=== PATIENT | female | born 1985 | race Caucasian/White ===

== ENCOUNTER 2024-11-01 11:02 | Outpatient (CLI) | payer OTHER, SELFPAY ==
--- OUTSIDE RECORDS SUMMARY | 2024-11-01 12:38 | XMS_ITS | Encounter Summary ---
Author Organization [facility] Address [address] [place] [address] Care Team Providers Care Credit Control Officer Name Role Phone Padmini Curry HIGHWAY TRUCK DRIVER Primary Care Provider Tavon Mehta DO Primary Care Provider [phone] TRUCK DRIVER Primary Care Provider Tavon Mehta DO Primary Care Provider [phone] Reason for Visit * Reason Onset Date Comments Letter 12/05/2022 Encounter Details Date Type Department Care Team (Late st Contact Info) Description 12/05/2022 MyChart Message Enc [facility] Medical Group Family Medicine - [place] [address] [place] [address] Tavon Alvarado DO [address] [place] [address] Itch cream Social History Tobacco Use Types Packs/Day Years Used Date Smoking Tobacco: Former Cigarettes 0.3 1 0 07/06/2018 - 07/06/2019 Smokeless Tobacco: Never Alcohol Use Standard Drinks/Week Comments Not Currently 0 (1 standard drink = 0.6 oz pur e alcohol) PHQ-2 Answer Date Recorded Patient Health Questionnaire-2 Score 0 07/03/2022 Comments No Sex and Gender Information Value Date Recorded Sex Assigned at Not on file Legal Sex Female 4:03 PM CDT Gender Identity Female 11/27/2021 5:01 AM CDT Sexual Orientation Not on file COVID-19 Exposure Response Date Recorded In the last 10 days, have yo u been in contact with someone who was confirmed or suspected to have Coronavirus/COVID-19? No / Unsure 12/04/2022 10:27 AM CDT documented as of this encounter Progress Notes * Padmini Curry NP - 12/09/2022 2:05 PM CDT Patient requesting extended time off. I am not sure if you feel that this is needed since I did notsee her. * Luís Dubon MA - 12/09/2022 10:52 AM CDT FYI * Marybeth Benedict - 12/08/2022 1:21 PM CDT Pt called and is wanting to know about being office work until Thursday12/15/22 due to her hives. Herlegs are getting better but still has them on her buttocks and butt crack. Pt will need a note extended until Thursday instead of tomorrow Call pt back today * Reena Boss - 12/08/2022 8:30 AM CDT Patient is calling to verify the status of her off work letter. Please follow up with patient/ documented in this encounter Plan of Treatment Not on file documented as of this encounter Visit Diagnoses Not on filedocumented in this encounter Additional Health Concerns Assessment Noted Time PHQ-9 Depression Total Score: 0 08/23/19 20 10:04 AM BLOCK HAND documented as of this encounter Care Teams Credit Control Officer Relationship Specialty Start Date End Date Padmini Curry NP PCP - General NURSE PRACTITIONER 08/23/19 01/28/23 Tav[place]varado [place] [address] PCP - General FAMILY PRACTICE 01/29/23 03/22/23 Padmini Curry NP PCP - General NURSE PRACTITIONER 03/23/23 04/01/23 Tavon Alvarado DO [address] [place], [place] [id number] PCP - General FAMILY PRACTICE 04/02/23 documented as of this encounter
--- OUTSIDE RECORDS SUMMARY | 2024-11-01 12:38 | XMS_ITS | Clinical Summary ---
Author Organization [facility] Address [facility] [place] [address] Care Team Providers Care Bus Driver Supervisor Name Role Phone Christiano, Tavon Jose De Jesus Primary Care Provider [phone] Allergies No known active allergies Medications No known medications Active Problems Problem Noted Date Diagnosed Date Class 2 obesity due to exces s calories without serious comorbidity with body mass index (BMI) of 37.0 to 37.9 in adult 04/02/2023 Dizziness 04/02/2023 Transient neurological symptoms 04/02/2023 Resolved Problems Problem Noted Date Diagnosed Date Resolved Date Bilateral tinnitus 07/03/2022 Hearing loss 07/03/2022 04/02/2023 Acute cystitis without hematuria 07/10/2021 04/02/2023 Overview (07/03/2022): Last Assessment & Plan: Will culture urine Advised increased fluids, rest Note printed for work Advised cranberry juice 4-6oz/day Advised f/u in next week if not improving, sooner if worsening Patient reminded that with this antibiotic that leg pain and inflammation may occur. They were reminded that in the event of these symptoms to stop taking the antibiotic and contact the office. Obesity (BMI 30.0-34.9) 07/21/201703/07 Family History Medical History Relation Comments Heart Disease Father None Mother Relation Status Comments Father Alive Mother Alive Social History Tobacco Use Types Packs/Day Years Used Date Smoking Tobacco: Former Cigarettes 0.3 1 0 07/06/2018 - 07/06/2019 Smokeless Tobacco: Never Tobacco Cessation:Counseling Given: No Alcohol Use Standard Drinks/Week Comments Not Currently 0 (1 standard drink = 0.6 oz pur e alcohol) PHQ-2 Answer Date Recorded Patient Health Questionnaire-2 Score 2 04/02/2023 Comments No Sex and Gender Information Value Date Recorded Sex Assigned at Not on file Legal Sex Female 4:03 PM CDT Gender Identity Female 11/27/2021 5:01 AM CDT Sexual Orientation Not on file Last Filed Vital Signs Vital Sign Reading Time Taken Comments Blood Pressure 110/74 04/02/2023 7:43 AM CDT Pulse 80 04/02/2023 7:43 AM CDT Temperature 36.7 C (98.1 F) 04/02/2023 7:43 AM CDT Respiratory Rate 16 11/12/2022 9:00 PM CDT Oxygen Saturation 98% 04/02/2023 7:43 AM CDT Inhaled Oxygen Concentration - - Weight 94 kg (207 lb 4.8 oz) 04/02/2023 7:43 AM CDT Height 157.5 cm (5' 2 ) 02/24/2023 9:39 AM CDT Body Mass Index 37.92 02/24/2023 9:39 AM CDT Plan of Treatment Health Maintenance Due Date Last Done Comments Annual Physical 1989 Hepatitis C 2004 DTaP, Tdap and Td Vaccines ( 1 - Tdap) 2005 Hepatitis B Vaccines (1 of 3 - 19+ 3-dose series) 2005 COVID-19 Vaccine ( - 2023-2 5 season) 2024 PHQ-2 (Physician [place]) 07/06/2024 04/02/2023 Cervical Cancer Screening Pa p Smear (Age 30 to 64) Every 3 Years 04/10/2026 04/10/2023, 04/02/2023 Cervical Cancer Screening Pa p with HPV Testing (Age 30 to 64) Every 5 Years 04/10/2028 04/10/2023, 12/20/2020 Cervical Cancer Screening wi th HPV 04/10/2028 HPV Vaccines Aged Out No longer eligi ble based on patient's age to complete this topic Meningococcal B Vaccine Aged Out No l onger eligible based on patient's age to complete this topic Meningococcal Vaccine Aged Out No beckie lissette eligible based on patient's age to complete this topic Pneumococcal Vaccine: Pediatrics (0 to 5 Years) and At-Risk Patients (6 to 49 Years) Aged Out No longer eligible b ased on patient's age to complete this topic RSV Immunizations Under 20 Months Aged Out No longer eligible b ased on patient's age to complete this topic Procedures Procedure Name Priority Date/Time Associated Diagnosis Comments HUMAN PAPILLOMAVIRUS, HIGH-RISK TYPES Routine 04/10/2023 12:00 PM CDT CYTOPATH CERV/VAG THIN LAYER Routine 04/10/2023 4:07 AM CDT from Last 3 Months or Most Recently Relevant to Health Maintenance Results * HUMAN PAPILLOMAVIRUS, HIGH-RISK TYPES (04/10/2023 12:00 PM CDT) SPEC DESCRIPTION CERVICAL/END OCERVICAL 04/13/2023 6:00 AM CDT [facility] HPV DNA HIGH RISK NEGATIVE NEGATIVE 04/13/2023 3:26 PM CDT [facility] Comment:SEE CYTOLOGY REPORT 04/10/2023 12:0 0 PM CDT us Chelsy Hubbard MD PATHOLOGY/CYTOLOGY ORDER ZHANE Final Result [facility] [address] [place] [address], * Cytopath Cerv/Vag Thin Layer (04/10/2023 4:07 AM CDT) THIN PREP PAP [facility] [address] [place] [address] Department of Pathology Pathology Report CERVICAL/VAGINAL PAP SMEAR REPORT Name: BARBARA SYED Age: 3 1985 (Age: 37) Location: [facility] Sex: F Collected Date: 04/10/2023 [facility] #: [id number] Date Received: 04/13/2023 Date Reported: 04/17/2023 Provider: CHELSY HUBBARD MD INTERPRETATION CERVICAL/ENDOCERVI MOISÉS: SATISFACTORY FOR EVALUATION. ENDOCERVICAL/TRANS FORMATION ZONE COMPONENT PRESENT. NEGATIVE FOR INTRAEPITHELIAL LESION OR MALIGNANCY. REACTIVE CHANGES PRESENT. NEGATIVE FOR HIGH RISK HPV. The FDA approved Aptima HPV assay is an in vitro nucleic acid amplification test for the qualitative detection of E6/E7 viral messenger RNA (mRNA) from 14 high-risk types of human papillomavirus (HPV) in cervical specimens. The high-risk HPV types detected by the assay include: 16,18,31,33,35,39, 45,51,52,56,58,59, 66, and 68. Electronically Signed Out María Rutherford M.D. DURGA Sutherland (ASCP) CLINICAL HISTORY Z12.4 ThinPrep Pap Test with HR HPV testing requested. SPECIMEN SUBMITTED CERVICAL/ENDOCERVI MOISÉS Specimen Received:1 Thin Prep Vial, Image Assisted Pap (SMD) Please note: The Pap smear is not a diagnostic test. It is a screening test. Negative results on combined screening (Pap test and HPV-DNA) have a high negative predictive value (99.1-100 percent) for cervical cancer. The pap test is not effective in detecting cervical adenocarcinoma. [facility] 04/10/2023 4:07 AM CDT 04/13/2023 4:07 AM CDT Comment:CERVICAL/ENDOCERVICA L us Chelsy Hubbard MD PATHOLOGY/CYTOLOGY ORDER ZHANE Final Result [facility] [address] [place] [address], from Last 3 Months or Most Recently Relevant to Health Maintenance Care Teams Bus Driver Supervisor Relationship Specialty Start Date End Date Tavon Alvarado [place] [place] [address] PCP - General FAMILY PRACTICE 04/02/23
--- OUTSIDE RECORDS SUMMARY | 2024-11-01 12:38 | XMS_ITS | Clinical Summary ---
Author Organization [facility] HealthCare Care Team Providers Care Hair Worker Name Role Phone No, Physician Primary Care Provider [phone] Allergies Active Allergy Reactions Criticality Noted Date Comments Penicillin G Unknown 03/04/2019 Medications miconazole 2 % vaginal creamIndications :Vulvovaginal Candidiasis Insert 1 applicator into the vagina nightly 45 g 1 2 Active Active Problems Problem Noted Date Diagnosed Date Acute cystitis without hematuria 07/10/2021 Assessment & Plan (07/10/2021 10:32 AM HOUSE PARENT): Will culture urine Advised increased fluids, rest Note printed for work Advised cranberry juice 4-6oz/day Advised f/u in next week if not improving, sooner if worsening Patient reminded that with this antibiotic that leg pain and inflammation may occur. They were reminded that in the event of these symptoms to stop taking the antibiotic and contact the office. Obesity (BMI 30.0-34.9) 07/21/2017 Surgical History Surgery Date Site/Laterality Comments CYSTECTOMY Medical History Medical History Date Comments No known problems Family History Medical History Relation Name Comments Breast cancer Neg Hx Social History Tobacco Use Types Packs/Day Years Used Date Smoking Tobacco: Former Cigarettes Smokeless Tobacco: Never Alcohol Use Standard Drinks/Week Comments Yes 0 (1 standard drink = 0.6 oz pur e alcohol) AUDIT-C Answer Date Recorded Frequency of Alcohol Consumption Monthly or less 03/04/2019 Average Number of Drinks 1 or 2 019 Frequency of Binge Drinking Not on file 02/05 Personal Safety Answer Date Recorded Getting School Help Needed Not on file 08/29 Comments No Sex and Gender Information Value Date Recorded Sex Assigned at Not on file Legal Sex Female 3:35 AM HOUSE PARENT Gender Identity Female 06/14/2019 10:34 PM HOUSE PARENT Sexual Orientation Straight 06/14/2019 10 :34 PM HOUSE PARENT Obstetrics History Para Term AB IAB SAB Ectopic Multiple Livin g Live Births 0 0 0 0 0 0 0 0 0 0 0 Last Filed Vital Signs Vital Sign Reading Time Taken Comments Blood Pressure 108/76 07/17/2021 8:49 AM HOUSE PARENT Pulse 87 06/30/2021 12:00 AM HOUSE PARENT Temperature 36.7 C (98.1 F) 06/29/2021 9:33 PM HOUSE PARENT Respiratory Rate 19 06/30/2021 12:00 AM HOUSE PARENT Oxygen Saturation 99% 06/30/2021 12:00 AM HOUSE PARENT Inhaled Oxygen Concentration - - Weight 92.6 kg (204 lb 3.2 oz) 07/17/2021 8:49 A M HOUSE PARENT Height 154.9 cm (5' 1 ) 07/17/2021 8:49 AM HOUSE PARENT Body Mass Index 38.58 07/17/2021 8:49 AM HOUSE PARENT Plan of Treatment Not on file Insurance [facility] HMO/PPO Address: [address] [address] Care Teams Hair Worker Relationship Specialty Start Date End Date No, Physician PCP - General 10/11/18
--- OUTSIDE RECORDS SUMMARY | 2024-11-01 12:38 | XMS_ITS | Encounter Summary ---
Author Organization [facility] Address [address] [place] [address] Care Team Providers Care Lithographic Printing Machinist Name Role Phone Padmini Curry NP Primary Care Provider Tavon Mehta DO Primary Care Provider [phone] Pdamini Curry RN PROCEDURES Primary Care Provider Tavon Mehta DO Primary Care Provider [phone] Encounter Details Date Type Department Care Team (Late st Contact Info) Description 11/10/2022 MyChart Message Enc [facility] Medical Group Family Medicine - [place] [address] [place] [address] Padmini Curry NP Rash Social History Tobacco Use Types Packs/Day Years [...] suspected to have Coronavirus/COVID-19? No / Unsure 11/12/2022 5:32 PM CDT documented as of this encounter Functional Status * Calculated C-SSRS Risk Score (Lifetime/Recent) Answer Date of Assessment Author Status No Risk Indicated 11/12/2022 5:36 PM CDT Harini Vazquez RN Active * Riley Suicide Severity Rating Scale (Screener/Recent Self-Report) Question Answer Date of Assessment Author Status 1. Wish to be (Past 1 Month) No 11/12/2022 5:36 PM CDT Ivon Vazquez RN Acti ve 2. Non-Specific Active Suicidal Thoughts (Past 1 Month) No 11/12/2022 5:36 PM CDT Ivon Vazquez RN Acti ve 6. Suicidal Behavior (Lifetime) No 11/12/2022 5:36 PM CDT Ivon Vazquez RN Acti ve documented as of this encounter Progress Notes * Padmini Curry NP - 11/19/2022 1:41 PM CDT I saw her on 11/10/2022 for this. * Chantell Frias - 11/19/2022 11:46 AM CDT Please see message and pictures. Okay to send out different cream or do you want pt to have a visit? * Chantell Frias - 11/19/2022 11:46 AM CDTFrom: Barbara Ramirez To: Padmini Curry Sent: 11/10/2022 8:45 AM CDT Subject: Rash Hello I was hoping you could call me in some cream for a rash I have on the upper back of each of my thighs right below the butt area. I???ve been using some triamcinolone acetonide cram 0.1% that I had left from previous issue I had like this however this cream is not working. Wasn???t sure if there was a stronger type of itching cream I cou ld use since I have to work and wearing clothes just irritates the area more thank you documented in this encounter Plan of Treatment Not on file documented as of this encounter Visit Diagnoses Not on filedocumented in this encounter Additional Health Concerns Assessment Noted Time PHQ-9 Depression Total Score: 0 08/23/19 20 10:04 AM CUTTER GRINDER OPERATOR documented as of this encounter Care Teams Lithographic Printing Machinist Relationship Specialty Start Date End Date Padmini Curry NP PCP - General NURSE PRACTITIONER 08/23/19 01/28/23 Tavon Alvarado DO [address] [place] [address] PCP - General FAMILY PRACTICE 01/29/23 03/22/23 Padmini Curry NP PCP - General NURSE PRACTITIONER 03/23/23 04/01/23 Tavon Alvarado DO [address] [place] [address] PCP - General FAMILY PRACTICE 04/02/23 documented as of this encounter
--- OUTSIDE RECORDS SUMMARY | 2024-11-01 12:38 | XMS_ITS | Encounter Summary ---
Author Organization [facility] Facility Care Team Providers Care Log Rider Name Role Phone No, Physician Primary Care Provider [phone] Encounter Details Date Type Department Care Team (Latest Contact Info) Description 03/02/2013 Orders Only [facility] CLINCONV Provider, MD Preston [address] [place] [address] Social History Tobacco Use Types Packs/Day Years Used Date Smoking Tobacco: Never Assessed Comments Unknown Sex and Gender Information Value Date Recorded Sex Assigned at Not on file Legal Sex Female 3:35 AM NEWSCAST PRODUCER Gender Identity Female 06/14/2019 10:34 PM NEWSCAST PRODUCER Sexual Orientation Straight 06/14/2019 10 :34 PM NEWSCAST PRODUCER documented as of this encounter Plan of Treatment Not on file documented as of this encounter Procedures Procedure Name Priority Date/Time Associated Diagnosis Comments SCAN - PATHOLOGY 03/02/2013 12:0 0 AM CDT documented in this encounter Results * SCAN - PATHOLOGY (03/02/2013 12:00 AM CDT) Narrative 03/02/2013 12:00 AM CDT Ordered by an unspecified provider. Historical Provider Final Res ult documented in this encounter Visit Diagnoses Not on filedocumented in this encounter Care Teams Log Rider Relationship Specialty Start Date End Date No, Physician PCP - General 10/11/18 documented as of this encounter
--- OUTSIDE RECORDS SUMMARY | 2024-11-01 12:38 | XMS_ITS | Encounter Summary ---
Author Organization [facility] Address [address] [place] [address] Care Team Providers Care Cutter And Edge Trimmer Name Role Phone Padmini Curry SCIENCE TECHNICIANS Primary Care Provider Tavon Mehta DO Primary Care Provider [phone] Padmini Curry SCIENCE TECHNICIANS Primary Care Provider Tavon Mehta DO Primary Care Provider [phone] Encounter Details Date Type Department Care Team (Late st Contact Info) Description 12/03/2021 Aqwise Message Enc [facility] Medical Group Family Medicine - [place] [address] [place] [address] [place], [facility] Provider Lab results Social History Tobacco Use Types Packs/Day Years Used Date Smoking Tobacco: Former Cigarettes 0.3 1 0 07/06/2018 - 07/06/2019 Smokeless Tobacco: Never Alcohol Use Standard Drinks/Week Comments Not Currently 0 (1 standard drink = 0.6 oz pur e alcohol) PHQ-2 Answer Date Recorded PHQ-2 Score 0 08/23/2019 Comments No Sex and Gender Information Value Date Recorded Sex Assigned at Not on file Legal Sex Female 4:03 PM CDT Gender Identity Female 11/27/2021 5:01 AM CDT Sexual Orientation Not on file COVID-19 Exposure Response Date Recorded In the last 10 days, have yo u been in contact with someone who was confirmed or suspected to have Coronavirus/COVID-19? No / Unsure 12/03/2021 7:44 AM CDT documented as of this encounter Plan of Treatment Not on file documented as of this encounter Visit Diagnoses Not on filedocumented in this encounter Additional Health Concerns Assessment Noted Time PHQ-9 Depression Total Score: 0 08/23/19 20 10:04 AM INNOVATIONS PARAPROFESSIONAL documented as of this encounter Care Teams Cutter And Edge Trimmer Relationship Specialty Start Date End Date Padmini Curry NP PCP - General NURSE PRACTITIONER 08/23/19 01/28/23 Tavon Alvarado, [address] [place] [address] PCP - General FAMILY PRACTICE 01/29/23 03/22/23 Padmini Curry NP PCP - General NURSE PRACTITIONER 03/23/23 04/01/23 Tavon Alvarado DO [address] [place] [address] PCP - General FAMILY PRACTICE 04/02/23 documented as of this encounter
--- OUTSIDE RECORDS SUMMARY | 2024-11-01 12:38 | XMS_ITS | Encounter Summary ---
Author Organization [facility] Address [address] [place] [address] Care Team Providers Care Belt Conveyor Drier Name Role Phone Padmini Curry DOOR BUILDER Primary Care Provider Tavon Mehta DO Primary Care Provider [phone] Padmini Curry DOOR BUILDER Primary Care Provider Tavon Mehta DO Primary Care Provider [phone] Encounter Details Date Type Department Care Team (Late st Contact Info) Description 12/12/2021 MyChart Message Enc [facility] Medical Group Family Medicine - [place] [address] [place] [address] Padmini Curry NP Dizzy spells Social History Tobacco Use Types Packs/Day Years [...] as of this encounter Progress Notes * Luís Dubon MA - 12/13/2021 7:10 AM CDT Please advise. documented in this encounter Plan of Treatment Not on file documented as of this encounter Visit Diagnoses Not on filedocumented in this encounter Additional Health Concerns Assessment Noted Time PHQ-9 Depression Total Score: 0 08/23/19 10:04 AM BOBBIN DISKER documented as of this encounter Care Teams Belt Conveyor Drier Relationship Specialty Start Date End Date Padmini Curry NP PCP - General NURSE PRACTITIONER 08/23/19 01/28/23 Tavon Alvarado DO [address] [place], [place] [id number] PCP - General FAMILY PRACTICE 01/29/23 03/22/23 Padmini Curry NP PCP - General NURSE PRACTITIONER 03/23/23 04/01/23 Tavon Alvarado DO [address] [place], [place] [id number] PCP - General FAMILY PRACTICE 04/02/23 documented as of this encounter
--- OUTSIDE RECORDS SUMMARY | 2024-11-01 12:38 | XMS_ITS | Referral Summary ---
Author Organization [facility] HealthCare Care Team Providers Care Raw Shellfish Preparer Name Role Phone No, Physician Primary Care Provider [phone] Allergies Active Allergy Reactions Criticality Noted Date Comments Penicillin G Unknown 03/04/2019 Medications miconazole 2 % vaginal creamIndications :Vulvovaginal Candidiasis Insert 1 applicator into the vagina nightly 45 g 1 2 Active Active Problems Problem Noted Date Diagnosed Date Acute cystitis without hematuria 07/10/2021 Assessment & Plan (07/10/2021 10:32 AM SPA DIRECTOR/FINANCE): Will culture urine Advised increased fluids, rest Note printed for work Advised cranberry juice 4-6oz/day Advised f/u in next week if not improving, sooner if worsening Patient reminded that with this antibiotic that leg pain and inflammation may occur. They were reminded that in the event of these symptoms to stop taking the antibiotic and contact the office. Obesity (BMI 30.0-34.9) 07/21/2017 Social History Tobacco Use Types Packs/Day Years [...] on file Legal Sex Female 3:35 AM SPA DIRECTOR/FINANCE Gender Identity Female 06/14/2019 10:34 PM SPA DIRECTOR/FINANCE Sexual Orientation Straight 06/14/2019 10 :34 PM SPA DIRECTOR/FINANCE Last Filed Vital Signs Vital Sign Reading Time Taken Comments Blood Pressure 108/76 07/17/2021 8:49 AM SPA DIRECTOR/FINANCE Pulse 87 06/30/2021 12:00 AM SPA DIRECTOR/FINANCE Temperature 36.7 C (98.1 F) 06/29/2021 9:33 PM SPA DIRECTOR/FINANCE Respiratory Rate 19 06/30/2021 12:00 AM SPA DIRECTOR/FINANCE Oxygen Saturation 99% 06/30/2021 12:00 AM SPA DIRECTOR/FINANCE Inhaled Oxygen Concentration - - Weight 92.6 kg (204 lb 3.2 oz) 07/17/2021 8:49 A M SPA DIRECTOR/FINANCE Height 154.9 cm (5' 1 ) 07/17/2021 8:49 AM SPA DIRECTOR/FINANCE Body Mass Index 38.58 07/17/2021 8:49 AM SPA DIRECTOR/FINANCE Plan of Treatment Not on file Insurance [facility] H[facility]/PPO Address: [facility] [address] [place] [address] Care Teams Raw Shellfish Preparer Relationship Specialty Start Date End Date No, Physician PCP - General 10/11/18
--- OUTSIDE RECORDS SUMMARY | 2024-11-01 12:38 | XMS_ITS | Encounter Summary ---
Author Organization [facility] Address [address] [place] [address] Care Team Providers Care Manager Mass Name Role Phone Padmini Curry NP Primary Care Provider Tavon Mehta DO Primary Care Provider [phone] Padmini Curry CARBONATION EQUIPMENT OPERATOR Primary Care Provider Tavon Mehta DO Primary Care Provider [phone] Encounter Details Date Type Department Care Team (Late st Contact Info) Description 07/02/2022 MyChart Message Enc [facility] Medical Group Family Medicine - [place] [address] [place] [address] Padmini Curry NP Medication needed Social History Tobacco Use Types Packs/Day Years [...] suspected to have Coronavirus/COVID-19? No / Unsure 07/03/2022 12:15 PM HEAD MEN'S TENNIS COACH documented as of this encounter Functional Status * Over the past 2 weeks, how often have you been bothered by any of the following problems? Question Answer Date of Assessment Author Status Little interest or pleasure in doing things Not at all 07/03/2022 12:22 PM HEAD MEN'S TENNIS COACH Jarod Ledesma MA Acti ve Feeling down, depressed, or hopeless Not at all 07/03/2022 12:22 PM HEAD MEN'S TENNIS COACH Jarod Ledesma MA Active Patient Health Questionnaire-2 Score 0 07/03/2022 12:22 PM HEAD MEN'S TENNIS COACH Jarod Ledesma M A Active documented as of this encounter Progress Notes * Luís Dubon MA - 07/03/2022 8:26 AM CST Pt coming in for appt today. 07/03/22. MEN'S TENNIS COACH * Marybeth Benedict - 07/03/2022 7:34 AM CST Pt called and scheduled an appt today 07/03/22 MEN'S TENNIS COACH * Marybeth Benedict - 07/02/2022 9:13 AM CST Pt called office and stated that she thinks she has a sinus infection. Pt is wanting to know if shecan get a script for this. MEN'S TENNIS COACH documented in this encounter Plan of Treatment Not on file documented as of this encounter Visit Diagnoses Not on filedocumented in this encounter Additional Health Concerns Assessment Noted Time PHQ-9 Depression Total Score: 0 08/23/19 20 10:04 AM HEAD MEN'S TENNIS COACH documented as of this encounter Care Teams Manager Mass Relationship Specialty Start Date End Date Padmini Curry NP PCP - General NURSE PRACTITIONER 08/23/19 01/28/23 Tavon [place] [address] [address] [place] [address] PCP - General FAMILY PRACTICE 01/29/23 03/22/23 Padmini Curry NP PCP - General NURSE PRACTITIONER 03/23/23 04/01/23 Tavon Alvarado DO [address] [place] [address] PCP - General FAMILY PRACTICE 04/02/23 documented as of this encounter
--- OUTSIDE RECORDS SUMMARY | 2024-11-01 12:38 | XMS_ITS | Encounter Summary ---
Author Organization [facility] Address [address] [place] [address] Care Team Providers Care Public Health Worker Name Role Phone Padmini Curry NP Primary Care Provider Tavon Mehta DO Primary Care Provider [phone] Padmini Curry AVIONICS SAFETY INSPECTOR Primary Care Provider Tavon Mehta DO Primary Care Provider [phone] Encounter Details Date Type Department Care Team (Late st Contact Info) Description 12/05/2021 MyChart Message Enc [facility] Medical Group Family Medicine - [place] [address] [place] [address] Padmini Curry NP Note for work Social History Tobacco Use Types Packs/Day Years [...] Progress Notes * Luís Dubon MA - 12/05/2021 10:05 AM CDT Pt notified the letter is signed and ready for crab picker; documented in this encounter Plan of Treatment Not on file documented as of this encounter Visit Diagnoses Not on filedocumented in this encounter Additional Health Concerns Assessment Noted Time PHQ-9 Depression Total Score: 0 08/23/19 10:04 AM NURSING RESIDENT documented as of this encounter Care Teams Public Health Worker Relationship Specialty Start Date End Date Padmini Curry NP PCP - General NURSE PRACTITIONER 08/23/19 01/28/23 Tavon Alvarado DO [address] [place], [place] [id number] PCP - General FAMILY PRACTICE 01/29/23 03/22/23 Padmini Curry NP PCP - General NURSE PRACTITIONER 03/23/23 04/01/23 Tavon Alvarado DO [address] [place], [place] [id number] PCP - General FAMILY PRACTICE 04/02/23 documented as of this encounter
--- OUTSIDE RECORDS SUMMARY | 2024-11-01 12:38 | XMS_ITS | Encounter Summary ---
Author Organization [facility] Address [address] [place] [address] Care Team Providers Care Regional Airline Pilot Name Role Phone Padmini Curry NP Primary Care Provider Tavon Mehta DO Primary Care Provider [phone] Padmini Curry PROCESS SPECIALIST Primary Care Provider Tavon Mehta DO Primary Care Provider [phone] Encounter Details Date Type Department Care Team (Late st Contact Info) Description 11/12/2022 Hoseannat Message Enc [facility] Medical Group Family Medicine - [place] [address] [place] [address] Padmini Curry NP Question Social History Tobacco Use Types Packs/Day Years [...] Status No Risk Indicated 11/12/2022 5:36 PM Harini Meadows RN Active * [place] Suicide Severity Rating Scale (Screener/Recent Self-Report) Question Answer Date of Assessment Author Status 1. Wish to be (Past 1 Month) No 11/12/2022 5:36 PM Ivon Meadows, RN Acti ve 2. Non-Specific Active Suicidal Thoughts (Past 1 Month) No 11/12/2022 5:36 PM Ivon Meadows, RN Acti ve 6. Suicidal Behavior (Lifetime) No 11/12/2022 5:36 PM Ivon Meadows, RN Acti ve documented as of this encounter Plan of Treatment Not on file documented as of this encounter Visit Diagnoses Not on filedocumented in this encounter Additional Health Concerns Assessment Noted Time PHQ-9 Depression Total Score: 0 08/23/19 20 10:04 AM MULTIPLE RESAW OPERATOR documented as of this encounter Care Teams Regional Airline Pilot Relationship Specialty Start Date End Date Padmini Curry NP PCP - General NURSE PRACTITIONER 08/23/19 01/28/23 Tavon Alvarado DO [address] [place], [place] [id number] PCP - General FAMILY PRACTICE 01/29/23 03/22/23 Padmini Curry NP PCP - General NURSE PRACTITIONER 03/23/23 04/01/23 Tavon Alvarado [place] [place] [address] PCP - General FAMILY PRACTICE 04/02/23 documented as of this encounter
== END 2024-11-01 11:03 | disposition home or self-care (01) ==
LOC: ANHSURGERY 11:12
PROVIDERS: PCP Family Medicine; Visit Provider Obstetrics & Gynecology
DX: R10.2 Pelvic and perineal pain (principal)
CPT/HCPCS: 36415; 86850; 86900; 86901

== ENCOUNTER 2024-11-11 00:58 | Day surgery (SDC) | payer OTHER, SELFPAY ==
[2024-11-01 09:21] VITALS: BMI 33.0
--- NOTE | 2024-11-01 09:21 | PC.NURSE ---
Report to the Outpatient Waiting Room, entrance under the green pavilion located off [facility], at time _0815_ on date _[id number]_. Planned Procedure Time: _1015_.? Time changes happen often and if your time is changed the preop area will call you the afternoon before. - You and your visitor will be asked to self-screen and do not enter if you have any COVID symptoms. Please call surgeon if you need to reschedule. - A mask is optional within the hospital at this time. Patients may have clear liquids (water, carbonated beverages, clear teas, apple juice) until 3 hours prior to surgery with a maximum of 20 ounces. - No food from midnight until time of surgery and no smoking, or chewing tobacco (or any form of nicotine). No chewing gum, candy or mints. Take only the following medications with a SIP of water on the morning of surgery: __None___ DO NOT STOP ANY OF YOUR OTHER PRESCRIPTION MEDICATIONS PRIOR TO SURGERY EXCEPT THE FOLLOWING Hold all vitamins and supplements for 3 days per anesthesiologist. Medications to discontinue per physician Date to take last dose Please no make-up, nail irish, hairspray, perfume, deodorant, or body powder the day of surgery.? No jewelry (including any body piercings) or valuables the day of surgery, leave them at home.? Please take a shower or bath the night before, or the morning of, surgery with an antibacterial soap.? Wear comfortable, loose fitting clothing. - Jewelry must be removed prior to entering the operating room.? Rings and piercings that are not removed may be cut off. - The hospital will not accept responsibility for valuables.? - Please leave all valuables, including medications, at home the day of surgery. If you are going home after surgery, a licensed ready mix truck driver must drive you home.? - NO public transportation without another adult if you receive anesthesia. - We recommend that an adult stay with you for 24 hours following discharge. - We also recommend that you do not drive, make important decision, drink alcoholic beverages, or take any drugs that were not prescribed by your health care provider for at least 24 hours after your discharge time. Follow any additional instructions given to you from your surgeon. Telephone instructions given to __Amber__and asked if any additional questions and then verbalized understanding. Patient advised to call surgeon office or pre surgery nurse liaison [phone] if any additional questions.
--- NOTE | 2024-11-08 12:34 | PM.IMHP ---
H&P: HPI History of Present Illness Date/Time: 11/08/24 12:34 Chief Complaint: Pelvic pain Narrative: This is a 39-year-old female admitted for diagnostic laparoscopy secondary to pelvic pain. She has a known history of pelvic adhesions and is under lysis of adhesions before the past. Her pain is life changing. Risks and benefits of this procedure reviewed including not exclusive of , aspiration pneumonia, bleeding, transfusion, perforation injury to bowel bladder ureters or other internal organs the need for open laparotomy. She received the [employer]COG handout entitled laparoscopy. She had all questions answered and asked to proceed I did tell her that I do chromopertubation will it was air Review of Systems Review of Systems: All systems reviewed & are unremarkable except as noted in HPI and below PMFSH Social History Social History Smoking status: Never smoker Living arrangements: with family Spiritual care concerns: No Meds Home Medications and Allergies Home Medications ?Medication ?Instructions ?Recorded ?Confirmed ?Type No Home Medications 11/01/24 11/01/24 History Allergies Allergy/AdvReac Type Severity Reaction Status Date / Time Sulfa (Sulfonamide Allergy Mild Nausea Unverified 11/01/24 09:15 Antibiotics) Exam Const: General: cooperative, healthy appearing and comfortable Nutritional Appearance: average body habitus Orientation/consciousness: oriented to person, oriented to place and oriented to time HENMT: Head: normal to inspection Resp: Effort & Inspection: normal respiratory effort Cardio: Rate: regular rate Rhythm: regular rhythm Heart sounds: S1 normal heart sound present and S2 normal heart sound present GI: Inspection: normal to inspection : External Female Exam: normal external appearance Speculum Exam - Vagina: normal appearance of the vagina Speculum Exam - Cervix: normal appearance of the cervix Bimanual exam- vagina & uterus: Cervical tenderness present Bimanual Exam- Adnexa, other: tender bilaterally Assessment and Plan Assessment and plan (1) Pelvic pain: Code(s): R10.2 - Pelvic and perineal pain Status: Acute Plan Proceed with diagnostic laparoscopy and expected lysis of adhesions will also undergo chromopertubation the the time of the procedure
[2024-11-11] VITALS (12 sets, daily range): BP systolic 101–137; BP diastolic 68–85; PULSE 74–93; RESP 12–20; TEMP 36.2–36.6; O2SAT 94–100
--- OUTSIDE RECORDS SUMMARY | 2024-11-11 01:01 | XMS_ITS | Encounter Summary ---
Author Organization [facility] Care Team Providers Care Celery Wrapper Name Role Phone No, Physician Primary Care Provider [phone] Encounter Details Date Type Department Care Team (Latest Contact Info) Description 03/02/2013 Orders Only [facility] CLINCONV Provider, MD [place] [address] [place] [address] Social History Tobacco Use Types Packs/Day Years Used Date Smoking Tobacco: Never Assessed Comments Unknown Sex and Gender Information Value Date Recorded Sex Assigned at Not on file Legal Sex Female 3:35 AM ACID CLEANER Gender Identity Female 06/14/2019 10:34 PM ACID CLEANER Sexual Orientation Straight 06/14/2019 10 :34 PM ACID CLEANER documented as of this encounter Plan of [...] on filedocumented in this encounter Care Teams Celery Wrapper Relationship Specialty Start Date End Date No, Physician PCP - General 10/11/18 documented as of this encounter
--- OUTSIDE RECORDS SUMMARY | 2024-11-11 01:01 | XMS_ITS | Encounter Summary ---
Author Organization [facility] Address [address] [place] [address] Care Team Providers Care Pocketbook Maker Name Role Phone Padmini Curry NP Primary Care Provider Tavon Mehta DO Primary Care Provider [phone] Padmini Curry WALL WASHER Primary Care Provider Tavon Mehta DO Primary Care Provider [phone] Encounter Details Date Type Department Care Team (Late st Contact Info) Description 07/02/2022 MyChart Message Enc [facility] Medical Group Family Medicine - [place] [address] [place] [address] Padmini Curry NP Medication needed [...] Coronavirus/COVID-19? No / Unsure 07/03/2022 12:15 PM MARKETING COMPLIANCE MANAGER documented as of this encounter Functional Status * Over the past 2 weeks, how often have you been bothered by any of the following problems? Question Answer Date of Assessment Author Status Little interest or pleasure in doing things Not at all 07/03/2022 12:22 PM MARKETING COMPLIANCE MANAGER Jarod Ledesma MA Acti ve Feeling down, depressed, or hopeless Not at all 07/03/2022 12:22 PM MARKETING COMPLIANCE MANAGER Jarod Ledesma MA Active Patient Health Questionnaire-2 Score 0 07/03/2022 12:22 PM MARKETING COMPLIANCE MANAGER Jarod Ledesma M A Active documented as of this encounter Progress Notes * Luís Dubon MA - 07/03/2022 8:26 AM CST Pt coming in for appt today. 07/03/22. ETING COMPLIANCE MANAGER * Marybeth Benedict - 07/03/2022 7:34 AM CST Pt called and scheduled an appt today 07/03/22 ETING COMPLIANCE MANAGER * Marybeth Benedict - 07/02/2022 9:13 AM CST Pt called office and stated that she thinks she has a sinus infection. Pt is wanting to know if shecan get a script for this. ETING COMPLIANCE MANAGER documented in this encounter Plan of Treatment Not on file documented as of this encounter Visit Diagnoses Not on filedocumented in this encounter Additional Health Concerns Assessment Noted Time PHQ-9 Depression Total Score: 0 08/23/19 20 10:04 AM MARKETING COMPLIANCE MANAGER documented as of this encounter Care Teams Pocketbook Maker Relationship Specialty Start Date End Date Padmini Curry NP PCP - General NURSE PRACTITIONER 08/23/19 01/28/23 Tav[place] [address] [address] [place] [address] PCP - General FAMILY PRACTICE 01/29/23 03/22/23 Padmini Curry NP PCP - General NURSE PRACTITIONER 03/23/23 04/01/23 Tavon Alvarado DO [address] [place] [address] PCP - General FAMILY PRACTICE 04/02/23 documented as of this encounter
--- OUTSIDE RECORDS SUMMARY | 2024-11-11 01:01 | XMS_ITS | Encounter Summary ---
Author Organization [facility] Address [address] [place] [address] Care Team Providers Care Strip Machine Operator Name Role Phone Padmini Curry NP Primary Care Provider Tavon Mehta DO Primary Care Provider [phone] Padmini Curry MIXING PICKER TENDER Primary Care Provider Tavon Mehta DO Primary Care Provider [phone] Encounter Details Date Type Department Care Team (Late st Contact Info) Description 11/10/2022 MyChart Message Enc [facility] Medical Group Family Medicine - [place] [address] [place] [address] Padmini Curry NP Rash Social [...] PM CDT Harini Vazquez RN Active * [place] Suicide Severity Rating Scale (Screener/Recent Self-Report) Question Answer Date of Assessment Author Status 1. Wish to be (Past 1 Month) No 11/12/2022 5:36 PM CDT Ivon Vazquez RN Acti ve 2. Non-Specific Active Suicidal Thoughts (Past 1 Month) No 11/12/2022 5:36 PM CDT Ivon Vazquez RN Acti ve 6. Suicidal Behavior (Lifetime) No 11/12/2022 5:36 PM CDT Ivon aVzquez RN Acti ve documented as of this [...] Total Score: 0 08/23/19 20 10:04 AM PAINT MIXER documented as of this encounter Care Teams Strip Machine Operator Relationship Specialty Start Date End Date Padmini Curry NP PCP - General NURSE PRACTITIONER 08/23/19 01/28/23 Tavon Alvarado DO [address] [place] [address] PCP - General FAMILY PRACTICE 01/29/23 03/22/23 Padmini Curry NP PCP - General NURSE PRACTITIONER 03/23/23 04/01/23 Tavon Alvarado DO [address] [place] [address] PCP - General FAMILY PRACTICE 04/02/23 documented as of this encounter
--- OUTSIDE RECORDS SUMMARY | 2024-11-11 01:01 | XMS_ITS | Encounter Summary ---
Author Organization [facility] Address [address] [place] [address] Care Team Providers Care Buckle Frame Shaper Name Role Phone Padmini Curry NP Primary Care Provider Tavon Mehta DO Primary Care Provider [phone] Padmini Curry DIAL BRUSHER Primary Care Provider Tavon Mehta DO Primary Care Provider [phone] Encounter Details Date Type Department Care Team (Late st Contact Info) Description 11/12/2022 Wafflet Message Enc [facility] Medical Group Family Medicine - [place] [address] [place] [address] Padmini Curry NP Question Social [...] 5:36 PM Harini Meadows RN Active * [place] Suicide Severity Rating Scale (Screener/Recent Self-Report) Question [...] Total Score: 0 08/23/19 20 10:04 AM TAVERN KEEPER documented as of this encounter Care Teams Buckle Frame Shaper Relationship Specialty Start Date End Date Padmini Curry NP PCP - General NURSE PRACTITIONER 08/23/19 01/28/23 Tavon Alvarado DO [address] [place], [place] [id number] PCP - General FAMILY PRACTICE 01/29/23 03/22/23 Padmini Curry NP PCP - General NURSE PRACTITIONER 03/23/23 04/01/23 Tavon Alvarado DO [address] [place] [address] PCP - General FAMILY PRACTICE 04/02/23 documented as of this encounter
--- OUTSIDE RECORDS SUMMARY | 2024-11-11 01:01 | XMS_ITS | Clinical Summary ---
Author Organization [facility] Address [facility] [place] [address] Care Team Providers Care Netting Inspector Name Role Phone Christiano, Tavon Jose De Jesus Primary Care Provider [phone] Allergies No known active allergies Medications No [...] - 2023-2 5 season) 2024 PHQ-2 (Physician [place]) 07/06/2024 04/02/2023 Cervical Cancer Screening Pa p [...] DESCRIPTION CERVICAL/END OCERVICAL 04/13/2023 6:00 AM CDT [facility] HPV DNA HIGH RISK NEGATIVE NEGATIVE 04/13/2023 3:26 PM CDT [facility] Comment:SEE CYTOLOGY REPORT 04/10/2023 12:0 0 PM CDT us Chelsy Hubbard MD PATHOLOGY/CYTOLOGY ORDER ZHANE Final Result [facility] [address] [place] [address], * Cytopath Cerv/Vag Thin Layer (04/10/2023 4:07 AM CDT) THIN PREP PAP [facility] [address] [place] [address] Department of Pathology Pathology Report CERVICAL/VAGINAL PAP SMEAR REPORT Name: BARBARA SYED Age: 3 1985 (Age: 37) Location: [facility] Sex: F Collected Date: 04/10/2023 [place] [employer] [facility] #: [id number] Date Received: 04/13/2023 Date Reported: 04/17/2023 Provider: [...] is not effective in detecting cervical adenocarcinoma. [facility] 04/10/2023 4:07 AM CDT 04/13/2023 4:07 AM CDT Comment:CERVICAL/ENDOCERVICA L us Chelsy Hubbard MD PATHOLOGY/CYTOLOGY ORDER ZHANE Final Result [facility] [address] [place] [address], from Last 3 Months or Most Recently Relevant to Health Maintenance Care Teams Netting Inspector Relationship Specialty Start Date End Date Tavon [place]var[place] [address] [address] [place] [address] PCP - General FAMILY PRACTICE 04/02/23
--- OUTSIDE RECORDS SUMMARY | 2024-11-11 01:01 | XMS_ITS | Encounter Summary ---
Author Organization [facility] Address [address] [place] [address] Care Team Providers Care Particle Board Supervisor Name Role Phone Padmini Curry NP Primary Care Provider Tavon Mehta DO Primary Care Provider [phone] Padmini Curry DIESEL ENGINE SPECIALIST Primary Care Provider Tavon Mehta DO Primary Care Provider [phone] Encounter Details Date Type Department Care Team (Late st Contact Info) Description 12/05/2021 MyChart Message Enc [facility] Medical Group Family Medicine - [place] [address] [place] [address] Padmini Curry NP Note for [...] the letter is signed and ready for seed cone picker; documented in this encounter Plan of Treatment Not on file documented as of this encounter Visit Diagnoses Not on filedocumented in this encounter Additional Health Concerns Assessment Noted Time PHQ-9 Depression Total Score: 0 08/23/19 10:04 AM WEB SITE ADMINISTRATOR documented as of this encounter Care Teams Particle Board Supervisor Relationship Specialty Start Date End Date Padmini Curry NP PCP - General NURSE PRACTITIONER 08/23/19 01/28/23 Tavon Alvarado DO [address] [place], [place] [id number] PCP - General FAMILY PRACTICE 01/29/23 03/22/23 Padmini Curry NP PCP - General NURSE PRACTITIONER 03/23/23 04/01/23 Tavon Alvarado DO [address] [place], [place] [id number] PCP - General FAMILY PRACTICE 04/02/23 documented as of this encounter
--- OUTSIDE RECORDS SUMMARY | 2024-11-11 01:01 | XMS_ITS | Encounter Summary ---
Author Organization [facility] Address [address] [place] [address] Care Team Providers Care Addressograph Operator Name Role Phone Padmini Curry UPHOLSTERY TECHNICIAN Primary Care Provider Tavon Mehta DO Primary Care Provider [phone] Padmini Curry UPHOLSTERY TECHNICIAN Primary Care Provider Tavon Mehat DO Primary Care Provider [phone] Encounter Details Date Type Department Care Team (Late st Contact Info) Description 12/03/2021 Fonmatch Message Enc [facility] Medical Group Family Medicine - [place] [address] [place] [address] [place], [facility] Provider Lab results Social History Tobacco Use [...] Total Score: 0 08/23/19 20 10:04 AM WOOLEN TESTER documented as of this encounter Care Teams Addressograph Operator Relationship Specialty Start Date End Date Padmini Curry NP PCP - General NURSE PRACTITIONER 08/23/19 01/28/23 Tavon Alvarado, [address] [place] [address] PCP - General FAMILY PRACTICE 01/29/23 03/22/23 Padmini Curry NP PCP - General NURSE PRACTITIONER 03/23/23 04/01/23 Tavon Alvarado DO [address] [place] [address] PCP - General FAMILY PRACTICE 04/02/23 documented as of this encounter
--- OUTSIDE RECORDS SUMMARY | 2024-11-11 01:01 | XMS_ITS | Encounter Summary ---
Author Organization [facility] Address [address] [place] [address] Care Team Providers Care Benzene Washer Operator Name Role Phone Padmini Curry SUPERVISOR PUBLIC HEALTH NURSING Primary Care Provider Tavon Mehta DO Primary Care Provider [phone] Padmini Curry SUPERVISOR PUBLIC HEALTH NURSING Primary Care Provider Tavon Mehta DO Primary Care Provider [phone] Encounter Details Date Type Department Care Team (Late st Contact Info) Description 12/12/2021 MyChart Message Enc [facility] Medical Group Family Medicine - [place] [address] [place] [address] Padmini Curry NP Dizzy spells [...] Depression Total Score: 0 08/23/19 10:04 AM TEST BAKER documented as of this encounter Care Teams Benzene Washer Operator Relationship Specialty Start Date End Date Padmini Curry NP PCP - General NURSE PRACTITIONER 08/23/19 01/28/23 Tavon Alvarado DO [address] [place], [place] [id number] PCP - General FAMILY PRACTICE 01/29/23 03/22/23 Padmini Curry NP PCP - General NURSE PRACTITIONER 03/23/23 04/01/23 Tavon Alvarado DO [address] [place], [place] [id number] PCP - General FAMILY PRACTICE 04/02/23 documented as of this encounter
--- OUTSIDE RECORDS SUMMARY | 2024-11-11 01:01 | XMS_ITS | Encounter Summary ---
Author Organization [facility] Address [address] [place] [id number] Care Team Providers Care Form Builder Helper Name Role Phone Padmini Curry REGIONAL ACCOUNT MANAGER Primary Care Provider Tavon Mehta DO Primary Care Provider [phone] Padmini Curry REGIONAL ACCOUNT MANAGER Primary Care Provider Tavon Mehta DO Primary Care Provider [phone] Reason for Visit * Reason Onset Date Comments Letter 12/05/2022 Encounter Details Date Type Department Care Team (Late st Contact Info) Description 12/05/2022 MyChart Message Enc [facility] Family Medicine - [place] [address] [place] [address] Tavon Alvarado DO [address] [place] [id number] Itch cream Social History Tobacco Use [...] Total Score: 0 08/23/19 20 10:04 AM ECONOMIC DEVELOPER documented as of this encounter Care Teams Form Builder Helper Relationship Specialty Start Date End Date Padmini Curry NP PCP - General NURSE PRACTITIONER 08/23/19 01/28/23 T[place] [address] PCP - General FAMILY PRACTICE 01/29/23 03/22/23 Padmini Curry NP PCP - General NURSE PRACTITIONER 03/23/23 04/01/23 Tavon Alvarado DO [address] [place], [place] [id number] PCP - General FAMILY PRACTICE 04/02/23 documented as of this encounter
--- OUTSIDE RECORDS SUMMARY | 2024-11-11 01:02 | XMS_ITS | Referral Summary ---
Author Organization [facility] Care Team Providers Care Pole Incisor Operator Name Role Phone No, Physician Primary Care Provider [phone] Allergies Active Allergy Reactions Criticality Noted Date Comments Penicillin G Unknown 03/04/2019 Medications miconazole 2 % vaginal creamIndications :Vulvovaginal Candidiasis Insert 1 applicator into the vagina nightly 45 g 1 2 Active Active Problems Problem Noted Date Diagnosed Date Acute cystitis without hematuria 07/10/2021 Assessment & Plan (07/10/2021 10:32 AM HEAD KNITTING MACHINE FIXER): Will culture urine Advised increased fluids, rest [...] on file Legal Sex Female 3:35 AM HEAD KNITTING MACHINE FIXER Gender Identity Female 06/14/2019 10:34 PM HEAD KNITTING MACHINE FIXER Sexual Orientation Straight 06/14/2019 10 :34 PM HEAD KNITTING MACHINE FIXER Last Filed Vital Signs Vital Sign Reading Time Taken Comments Blood Pressure 108/76 07/17/2021 8:49 AM HEAD KNITTING MACHINE FIXER Pulse 87 06/30/2021 12:00 AM HEAD KNITTING MACHINE FIXER Temperature 36.7 C (98.1 F) 06/29/2021 9:33 PM HEAD KNITTING MACHINE FIXER Respiratory Rate 19 06/30/2021 12:00 AM HEAD KNITTING MACHINE FIXER Oxygen Saturation 99% 06/30/2021 12:00 AM HEAD KNITTING MACHINE FIXER Inhaled Oxygen Concentration - - Weight 92.6 kg (204 lb 3.2 oz) 07/17/2021 8:49 A M HEAD KNITTING MACHINE FIXER Height 154.9 cm (5' 1 ) 07/17/2021 8:49 AM HEAD KNITTING MACHINE FIXER Body Mass Index 38.58 07/17/2021 8:49 AM HEAD KNITTING MACHINE FIXER Plan of Treatment Not on file Insurance [facility] HMO/PPO Address: [facility] [address] [place] [address] Care Teams Pole Incisor Operator Relationship Specialty Start Date End Date No, Physician PCP - General 10/11/18
--- OUTSIDE RECORDS SUMMARY | 2024-11-11 01:02 | XMS_ITS | Clinical Summary ---
Author Organization [facility] Care Team Providers Care Snow Removal Supervisor Name Role Phone No, Physician Primary Care Provider [phone] Allergies Active Allergy Reactions Criticality Noted Date Comments Penicillin G Unknown 03/04/2019 Medications miconazole 2 % vaginal creamIndications :Vulvovaginal Candidiasis Insert 1 applicator into the vagina nightly 45 g 1 2 Active Active Problems Problem Noted Date Diagnosed Date Acute cystitis without hematuria 07/10/2021 Assessment & Plan (07/10/2021 10:32 AM SCALDER): Will culture urine Advised increased fluids, rest [...] on file Legal Sex Female 3:35 AM SCALDER Gender Identity Female 06/14/2019 10:34 PM SCALDER Sexual Orientation Straight 06/14/2019 10 :34 PM SCALDER Obstetrics History Para Term AB IAB SAB Ectopic Multiple Livin g Live Births 0 0 0 0 0 0 0 0 0 0 0 Last Filed Vital Signs Vital Sign Reading Time Taken Comments Blood Pressure 108/76 07/17/2021 8:49 AM SCALDER Pulse 87 06/30/2021 12:00 AM SCALDER Temperature 36.7 C (98.1 F) 06/29/2021 9:33 PM SCALDER Respiratory Rate 19 06/30/2021 12:00 AM SCALDER Oxygen Saturation 99% 06/30/2021 12:00 AM SCALDER Inhaled Oxygen Concentration - - Weight 92.6 kg (204 lb 3.2 oz) 07/17/2021 8:49 A M SCALDER Height 154.9 cm (5' 1 ) 07/17/2021 8:49 AM SCALDER Body Mass Index 38.58 07/17/2021 8:49 AM SCALDER Plan of Treatment Not on file Insurance [facility] HMO/PPO Address: [address] [id number] Care Teams Snow Removal Supervisor Relationship Specialty Start Date End Date No, Physician PCP - General 10/11/18
--- NOTE | 2024-11-11 04:59 | WPDHPUPDATE1 ---
History and Physical Update Update Date/Time: 11/11/24 04:59 History and Physical has been reviewed, including an updated exam of the patient. There are NO changes in the patient's condition. Risks, benefits, and alternatives have been discussed and questions answered. Patient agrees to proceed with procedure.
[2024-11-11] MEDS: ACETAMINOPHEN 500 MG TABLET 1000 MG PO ×2 (11:10→16:50)
[2024-11-11] MEDS: LACTATED RINGERS 1,000 ML 30 ML IV CONT ×2 (11:30→14:17)
[2024-11-11] MEDS: KETOROLAC 15 MG/ML VIAL (*BKC) IV PUSH (11:40)
--- NOTE | 2024-11-11 12:05 | P.PNAN_ITS ---
Anes - Initial Pre Proc Eval Procedure: Operation Date: 11/11/24 13:15 Proposed Procedures p Diagnostic Laparoscopy with Lysis of Adhesions - Iftikhar Gabriel MD Date/Time: 11/11/24 12:05 Surgeon: Iftikhar Gabriel MD Pre Op Diagnosis: Pelvic Pain, Pelvic Adhesions Patient Data Age: 39 Gender: F Height: 1.57 m Weight: 91.95 kg Last Vital Signs Temp 97.8 F 11/11/24 10:55 Pulse 77 11/11/24 10:55 Resp 20 11/11/24 10:55 BP 126/83 11/11/24 10:55 Pulse Ox 100 11/11/24 10:55 O2 Del Method Room Air 11/11/24 10:55 Allergies Allergy/AdvReac Type Severity Reaction Status Date / Time Sulfa (Sulfonamide Allergy Mild Nausea Unverified 11/11/24 11:51 Antibiotics) Home Medications ?Medication ?Instructions ?Recorded ?Confirmed ?Type hydrocodone 5 mg-acetaminophen 325 1 tablet PO Q4H PRN pain #14 tabs 11/11/24 Rx mg tablet Patient hx anesthesia problems: none Family hx anesthesia problems: none Results Review: All pre-operative results and documents have been reviewed as part of the pre- operative evaluation. [facility] Social History Social History Smoking status: Never smoker Living arrangements: with family Spiritual care concerns: No Anes - Eval Final PreProcedure Day of Procedure 11/11/24 12:05 Patient weight: obese Heart: regular rate and rhythm Lungs: clear to auscultation Airway: Mallampati scale class II Neurological: alert and oriented Last oral intake: >/= 8 hours ASA classification: II Emergent: no Anesthetic plan: proceed Anesthesia type and monitoring: general ETT and standard monitoring Results Review: All pre-operative results and documents have been reviewed as part of the pre- operative evaluation. Informed Consent: The patient's anesthetic plan and its attendant risks and benefits were discussed with the patient/family/POA. Questions were solicited and answers provided to the satisfaction of the patient/family/POA.
[2024-11-11 12:18] LABS: BEDSIDEPREGUCG Negative (Negative)
[2024-11-11] MEDS: ceFAZolin SODIUM 1 GM VIAL 2 GM IV PUSH (12:50)
--- NOTE | 2024-11-11 14:03 | W.PM.PROC2 ---
Procedure Note - Detailed Date of Procedure 11/11/24 Pre-op Diagnosis Pelvic Pain, Pelvic Adhesions Post-op Diagnosis Other (Pelvic pain/pelvic adhesions/right ovarian cyst) Procedure Performed Laparoscopy with extensive lysis of adhesions and destruction of right cyst Surgeon Iftikhar Gabriel MD Anesthesia General Indications This is 39-year-old female with a history of pelvic adhesions severe pelvic pain Findings Marked amount of adhesions were seen including omentum bowel uterus. A large benign-appearing right ovarian cyst was present. The left adnexa was unable to be safely seen secondary to the scar tissue. A normal-appearing gallbladder was present. Description of Procedure The patient was prepped draped in the normal sterile fashion placed in the dorsal lithotomy position. Under excellent general trach anesthesia weighted speculum placed in posterior fornix vagina. Anterior lip of the cervix grasped with a single-tooth tenaculum. Frankel's cannula inserted the cervix and attached to the single-tooth to be used later for uterine manipulation. The bladder was emptied of clear urine the weighted speculum was removed. The gloves were changed. A 5mm incision was made at singer's point and Veress needle paced the abdomen. Abdomen filled with CO2 gas [id number]. The 5mm trocar advanced under direct visualization assuring no injury. Patient placed in Trendelenburg huge adhesions were seen. Anteriorly were marked amount of adhesions in the uterus could even be seen to start. A left lower quadrant incision made and a 5mm trocar advanced under direct visualization. Using sharp dissection the omentum anteriorly was cleared in order to allow for a right lower quadrant incision made and a 5mm trocar advanced under direct visualization assuring no injury. The ovary and tube were markedly adherent to the posterior surface of the uterus and the ovarian ovarian cyst was seen this was opened in linear fashion and drained of clear fluid. The fallopian tube appeared to be completely encased in the ovary. This was difficult to see. The right on the right. The left adnexa could not be seen sharp dissection was used to sharply dissect the bowel and colon which was stuck to the anterior and posterior surface of the uterus. The left adnexa was unable to be reached and it was at this point it was felt unsafe to proceed with the procedure as the remained the uterus now was highly mobile. Attempt was made at chromopertubation but no leakage was able be seen from that right fallopian tube. In light of this poor outcome I did not appear that further attempts at treatment of this these adnexa would be helpful as far as future fertility goes. As uterus was markedly mobile and blood loss was 25cc at this point decision was made to irrigate all pedicles appeared dry the instruments were withdrawn the gas removed from the abdomen. The trocars removed and incisions closed with 4-0 Monocryl and glue the patient went to recovery in satisfactory condition. All sponge, needle, instrument counts were correct. There were no immediate complications Estimated Blood Loss 25 Drains No Packing No Pathology None sent Complications No immediate complications Condition Stable Disposition PACU
[2024-11-11] MEDS: fentaNYL CITRATE INJ (*CRX) 100 MCG/2 ML VIAL 25 MCG IV PUSH ×6 (14:42→15:20)
[2024-11-11] MEDS: ONDANSETRON INJ 4 MG/2 ML VIAL IV PUSH (14:50)
[2024-11-11] MEDS: HYDROmorphone HCL INJ (*CRX) 1 MG/ML SYR 0.5 MG IV PUSH ×3 (15:06→15:38)
[2024-11-11] MEDS: oxyCODONE HCL (*CRX) 5 MG TAB IR PO (16:26)
== END 2024-11-11 17:15 | disposition home or self-care (01) ==
PROVIDERS: PCP Family Medicine; Visit Provider Obstetrics & Gynecology
PROC: (CPT 49320; principal; 2024-11-11 13:15)
DX: N83.291 Other ovarian cyst, right side (principal); N73.6 Female pelvic peritoneal adhesions (postinfective); E66.9 Obesity, unspecified; Z68.37 Body mass index [BMI] 37.0-37.9, adult; Z87.891 Personal history of nicotine dependence
CPT/HCPCS: 58662; A9270; J0690; J1100; J1171; J1885; J2250; J2405; J2704; J3010; J7120; Q9968